=== PATIENT | male | born 1990 | race Caucasian/White ===

== ENCOUNTER 2023-09-25 02:19 | Inpatient (IN) | payer OTHER ==
[2023-09-25] MEDS ORDERED: fentaNYL 50 mcg/mL 1 mL Vial ONE (02:31)
[2023-09-25 03:04] LABS: Hematocrit 49.9 % (42.0-52.0); Hemoglobin 17.2 g/dL (14.0-18.0); Mean Corpuscular HGB CONC 34.5 g/dL (32.0-36.0); Mean Corpuscular Hemoglobin 27.3 pg (27.0-31.0); Mean Corpuscular Volume 79.2 fl (78.0-98.0); Mean Platelet Volume 10.6 fL (7.4-10.4); Platelet Count 350 10x3/uL (130-400); RBC Distribution Width 12.7 % (11.5-14.5)
[2023-09-25 03:05] LABS: Delete Auto Diff?? YES; Manual Diff?? YES
[2023-09-25] MEDS ORDERED: Orphenadrine Citrate 60 MG/2 ML VIAL ONE (03:25)
[2023-09-25 03:26] LABS: ALT (SGPT) 31 U/L (8-55); AST (SGOT) 29 U/L (5-34); Alkaline Phosphatase 55 U/L (40-110); Anion Gap 19 mmol/L (10-20); BUN (Urea Nitrogen) 11 mg/dL (8.9-20.6); Bilirubin, Total 1.1 mg/dL (0.2-1.2); CK (CPK) 212 U/L (30-200); Calc. Creatinine Clearance 0 mL/min (70-130); Calcium 9.6 mg/dL (7.8-10.44); Carbon Dioxide 18 mmol/L (22-29); Chloride 106 mmol/L (98-107); Estimated GFR 116; Globulin 2.5 g/dL (2.4-3.5); Glucose 120 mg/dL (70-105); Potassium 3.4 mmol/L (3.5-5.1); Protein, Total 7.5 g/dL (6.0-8.3); Sodium 140 mmol/L (136-145)
[2023-09-25] MEDS ORDERED: Boostrix 0.5 ML (Tdap) VIAL (>/=7 yrs of age) ONE (03:26)
[2023-09-25 03:39] LABS: Band 4 % (5-11); CellaVision Operator ID LAB.JMM; Lymphocytes 7 % (21-51); Monocytes 5 % (0-10); Neutrophil 81 % (42-75); Platelet Adequacy Comment Platelets Normal; RBC Morphology Within Normal Limits; Reactive Lymphocytes 3 % (0-10); Smudge Cells 8.1 %; Total Cell Count 99
[2023-09-25] MEDS ORDERED: Morphine 4 MG/ML VIAL SLOW IVP PRN (03:46)
[2023-09-25] MEDS ORDERED: TETANUS, DIPHTHERIA TOX,ADULT (TDVAX) 0.5 ML VIAL IM ONE (03:46)
[2023-09-25] MEDS ORDERED: Ondansetron PF 4 MG/2 ML Vial IVP PRN (03:46)
[2023-09-25] MEDS ORDERED: Morphine 2 MG/ML VIAL SLOW IVP PRN (03:46)
[2023-09-25] MEDS ORDERED: traMADol HCl 50 MG TAB PO PRN (03:49)
[2023-09-25 04:53] LABS: PTT 24.9 sec (22.9-36.1)
[2023-09-25 05:00] LABS: INR-International Normal Ratio 1.1; Prothrombin Time 14.9 sec (12.0-14.7)
[2023-09-25] MEDS: Acetaminophen 500 MG TAB PO SCH ×3 (05:29→18:15)
[2023-09-25] MEDS: Sodium Chloride 0.9% 1,000 ML IV SCH ×3 (05:30→18:25)
[2023-09-25] MEDS: traMADol HCl 50 MG TAB PO SCH ×3 (05:30→18:16)
[2023-09-25] MEDS: Cyclobenzaprine 10 MG TAB PO PRN ×2 (05:31→20:43)
[2023-09-25 06:32] VITALS: BMI 24.5
[2023-09-25] MEDS ORDERED: CEFAZOLIN 2 GM in Sodium Chloride 0.9% 100 ML IVPB SCH (07:45)
[2023-09-25] MEDS ORDERED: FLU VACC QS2023-24(6MOS UP)/PF 60 MCG/0.5 ML SYRINGE IM ONE (09:00)
[2023-09-25 09:26] LABS: #Monocytes 1.7 thou/uL (0.11-0.59); #Neutrophils 14.6 thou/uL (1.40-6.50); %Basophils 0.1 % (0.0-1.0); %Lymphocytes 4.9 % (21.0-51.0); %Neutrophils 84.7 % (42.0-75.0); Hemoglobin 14.4 g/dL (14.0-18.0); Mean Corpuscular HGB CONC 34.3 g/dL (32.0-36.0); Mean Corpuscular Hemoglobin 27.1 pg (27.0-31.0); Mean Corpuscular Volume 79.1 fl (78.0-98.0); Mean Platelet Volume 10.8 fL (7.4-10.4); Platelet Count 257 10x3/uL (130-400); Red Blood Cell (RBC) Count 5.31 mill/uL (4.70-6.10)
[2023-09-25] MEDS: Senokot S 8.6-50 MG TAB PO SCH ×2 (09:26→20:26)
[2023-09-25] MEDS: Famotidine/PF 20 mg/2ml Vial SLOW IVP SCH ×2 (09:27→20:27)
[2023-09-25] MEDS: Polyethylene Glycol 3350 17 GM Packet PO SCH (09:27)
[2023-09-25 09:44] LABS: White Blood Cell (WBC) Count 17.2 10x3/uL (4.8-10.8)
[2023-09-25] MEDS ORDERED: Sodium Chloride 0.9% 100 ML ONE (10:36)
[2023-09-25] MEDS ORDERED: CEFAZOLIN 2 GM VIAL ONE (10:36)
[2023-09-25] MEDS ORDERED: fentaNYL PF 100 MCG/2 ML SYRINGE ONE (10:55)
[2023-09-25] MEDS ORDERED: Ondansetron PF 4 MG/2 ML Vial ONE (11:03)
[2023-09-25] MEDS ORDERED: PROPOFOL 200 MG/20 ML VIAL ONE (11:03)
[2023-09-25] MEDS ORDERED: Ketorolac Tromethamine 30 MG/ML VIAL ONE (11:03)
[2023-09-25] MEDS ORDERED: PHENYLEPHRINE-NS 100 MCG/ML 10 ML SYRINGE ONE (11:03)
[2023-09-25] MEDS ORDERED: Lidocaine 1% PF 5 ML VIAL ONE (11:03)
[2023-09-25] MEDS ORDERED: Ondansetron HCl/PF 4 MG/2 ML Vial IVP PRN (12:37)
[2023-09-25] MEDS ORDERED: Promethazine HCl 25 MG/ML VIAL IM PRN (12:37)
[2023-09-25] MEDS ORDERED: Meperidine HCl/PF 25 MG/ML VIAL SLOW IVP PRN (12:37)
[2023-09-25] MEDS ORDERED: Iopamidol 370 76% 100 ML VIAL ONE (15:47)
[2023-09-25] MEDS: CEFAZOLIN 2 GM in Sodium Chloride 0.9% 100 ML IVPB SCH (18:26)
[2023-09-26] MEDS: traMADol HCl 50 MG TAB PO SCH ×5 (00:06→19:50)
[2023-09-26] MEDS: Acetaminophen 500 MG TAB PO SCH ×3 (00:07→13:13)
[2023-09-26] MEDS: CEFAZOLIN 2 GM in Sodium Chloride 0.9% 100 ML IVPB SCH ×2 (01:10→09:31)
[2023-09-26] MEDS: Sodium Chloride 0.9% 1,000 ML IV SCH ×2 (01:10→06:13)
[2023-09-26 06:42] LABS: #Eosinphils 0.1 thou/uL (0.0-0.7); #Neutrophils 4.7 thou/uL (1.40-6.50); %Basophils 0.5 % (0.0-1.0); %Eosinophils 1.7 % (0.0-10.0); %Lymphocytes 25.7 % (21.0-51.0); %Monocytes 12.5 % (0.0-10.0); %Neutrophils 59.3 % (42.0-75.0); Mean Corpuscular HGB CONC 34.2 g/dL (32.0-36.0); Mean Corpuscular Hemoglobin 27.6 pg (27.0-31.0); Mean Corpuscular Volume 80.7 fl (78.0-98.0); Mean Platelet Volume 10.9 fL (7.4-10.4); Platelet Count 184 10x3/uL (130-400); RBC Distribution Width 13.1 % (11.5-14.5); Red Blood Cell (RBC) Count 3.99 mill/uL (4.70-6.10); White Blood Cell (WBC) Count 7.9 10x3/uL (4.8-10.8)
[2023-09-26 06:48] LABS: Hematocrit 32.2 % (42.0-52.0)
[2023-09-26 06:50] LABS: INR-International Normal Ratio 1.2; PTT 32.9 sec (22.9-36.1); Prothrombin Time 15.9 sec (12.0-14.7)
[2023-09-26 07:29] LABS: Anion Gap 13 mmol/L (10-20); BUN (Urea Nitrogen) 10 mg/dL (8.9-20.6); Calc. Creatinine Clearance 147 mL/min (70-130); Calcium 7.9 mg/dL (7.8-10.44); Carbon Dioxide 20 mmol/L (22-29); Chloride 111 mmol/L (98-107); Estimated GFR 120; Glucose 112 mg/dL (70-105); Potassium 3.9 mmol/L (3.5-5.1); Sodium 140 mmol/L (136-145)
[2023-09-26] MEDS: Famotidine/PF 20 mg/2ml Vial SLOW IVP SCH ×2 (09:30→20:36)
[2023-09-26] MEDS: Cyclobenzaprine 10 MG TAB PO PRN (09:30)
[2023-09-26] MEDS: Senokot S 8.6-50 MG TAB PO SCH ×2 (09:30→20:36)
[2023-09-26] MEDS: Polyethylene Glycol 3350 17 GM Packet PO SCH (09:32)
[2023-09-26] MEDS ORDERED: Cyclobenzaprine 10 MG TAB PO PRN (13:14)
[2023-09-26] MEDS ORDERED: Ketorolac Tromethamine 30 MG/ML VIAL IVP SCH (13:30)
[2023-09-26] MEDS: Acetaminophen/Codeine 30-300mg Tablet PO SCH ×2 (15:09→19:49)
[2023-09-26] MEDS: Acetaminophen 325 MG TAB PO SCH ×2 (15:10→19:49)
[2023-09-26] MEDS: Ketorolac Tromethamine 30 MG/ML VIAL IVP SCH (20:35)
[2023-09-27] MEDS: Acetaminophen 325 MG TAB PO SCH ×5 (01:38→23:37)
[2023-09-27] MEDS: Acetaminophen/Codeine 30-300mg Tablet PO SCH ×4 (01:39→20:32)
[2023-09-27] MEDS: Ketorolac Tromethamine 30 MG/ML VIAL IVP SCH ×4 (01:40→20:35)
[2023-09-27] MEDS: traMADol HCl 50 MG TAB PO SCH ×5 (01:40→23:38)
[2023-09-27 06:48] LABS: #Eosinphils 0.3 thou/uL (0.0-0.7); #Monocytes 0.8 thou/uL (0.11-0.59); #Neutrophils 4.9 thou/uL (1.40-6.50); %Basophils 0.4 % (0.0-1.0); %Lymphocytes 21.3 % (21.0-51.0); %Monocytes 10.8 % (0.0-10.0); %Neutrophils 63.1 % (42.0-75.0); Hemoglobin 10.5 g/dL (14.0-18.0); Mean Corpuscular HGB CONC 33.9 g/dL (32.0-36.0); Mean Corpuscular Hemoglobin 27.4 pg (27.0-31.0); Mean Corpuscular Volume 80.9 fl (78.0-98.0); Mean Platelet Volume 10.7 fL (7.4-10.4); Platelet Count 163 10x3/uL (130-400); RBC Distribution Width 13.2 % (11.5-14.5); Red Blood Cell (RBC) Count 3.83 mill/uL (4.70-6.10); White Blood Cell (WBC) Count 7.7 10x3/uL (4.8-10.8)
[2023-09-27 07:14] LABS: Anion Gap 9 mmol/L (10-20); BUN (Urea Nitrogen) 12 mg/dL (8.9-20.6); Calc. Creatinine Clearance 164 mL/min (70-130); Calcium 8.6 mg/dL (7.8-10.44); Carbon Dioxide 25 mmol/L (22-29); Chloride 108 mmol/L (98-107); Estimated GFR 124; Glucose 91 mg/dL (70-105); Magnesium 1.9 mg/dL (1.6-2.6); Phosphorus 2.7 mg/dL (2.3-4.7); Potassium 3.9 mmol/L (3.5-5.1); Sodium 138 mmol/L (136-145)
[2023-09-27] MEDS ORDERED: Zolpidem Tartrate 5 MG TAB PO PRN (08:46)
[2023-09-27] MEDS: Polyethylene Glycol 3350 17 GM Packet PO SCH (08:47)
[2023-09-27] MEDS: Senokot S 8.6-50 MG TAB PO SCH ×2 (08:47→20:33)
[2023-09-27] MEDS: Famotidine/PF 20 mg/2ml Vial SLOW IVP SCH ×2 (08:48→20:40)
[2023-09-28] MEDS: Acetaminophen/Codeine 30-300mg Tablet PO SCH ×2 (03:33→09:14)
[2023-09-28] MEDS: Ketorolac Tromethamine 30 MG/ML VIAL IVP SCH (03:34)
[2023-09-28] MEDS: Acetaminophen 325 MG TAB PO SCH ×2 (05:33→12:55)
[2023-09-28] MEDS: traMADol HCl 50 MG TAB PO SCH ×2 (05:34→12:54)
[2023-09-28] MEDS ORDERED: Ibuprofen 200 MG TAB PO PRN (07:25)
[2023-09-28] MEDS: Senokot S 8.6-50 MG TAB PO SCH (09:14)
[2023-09-28] MEDS: Polyethylene Glycol 3350 17 GM Packet PO SCH (09:15)
[2023-09-28] MEDS: Famotidine/PF 20 mg/2ml Vial SLOW IVP SCH (09:15)
[2023-09-28 12:12] VITALS: BP 114/75; TEMP 98.2
[2023-09-28] MEDS ORDERED: Famotidine 20 MG TAB PO SCH (21:00)
== END 2023-09-28 16:15 | disposition home or self-care (01) | DRG 481 ==
LOC: ERS 02:19 → SJJU 03:46
PROVIDERS: ADMIT Specialist; ATTEND Specialist
PROC: 0QS804Z Reposition Right Femoral Shaft with Internal Fixation Device, Open Approach (ICD-10-PCS; principal; 2023-09-25)
DX: S72.301A Unspecified fracture of shaft of right femur, initial encounter for closed fracture (principal); D62 Acute posthemorrhagic anemia; S01.111A Laceration without foreign body of right eyelid and periocular area, initial encounter; R40.2410 Glasgow coma scale score 13-15, unspecified time; G89.11 Acute pain due to trauma; S09.90XA Unspecified injury of head, initial encounter; V29.408A Other motorcycle driver injured in collision with unspecified motor vehicles in traffic accident, initial encounter
CPT/HCPCS: 12011; 36415; 70450; 71045; 71260; 72125; 72170; 74177; 80048; 80053; 82550; 83735; 84100; 85025; 85610; 85730; 86850; 86900; 86901; 90471; 90715; 96372; 96374; C1713; G0390; J1650; J1885; J2270; J2360; J2405; J2704; J3010; J3490; J7050; Q9967; S0028